=== PATIENT | female | born 2000 | race Hispanic/Latino ===

== ENCOUNTER 2021-05-08 00:50 | Emergency (ER) | payer OTHER ==
[~2021-05-08] VITALS: Ht 160 cm; Wt 102.5 kg
== END 2021-05-08 02:30 | disposition home or self-care (01) ==
LOC: FSED 02:08
DX: R07.89 Other chest pain (principal); F43.20 Adjustment disorder, unspecified; R11.0 Nausea
CPT/HCPCS: 99282

== ENCOUNTER 2021-06-20 09:06 | Emergency (ER) | payer OTHER ==
[~2021-06-20] VITALS: Ht 160 cm; Wt 102.5 kg
== END 2021-06-20 09:46 | disposition home or self-care (01) ==
LOC: ER 09:21
DX: R07.89 Other chest pain (principal)
CPT/HCPCS: 99282